=== PATIENT | male | born 1965 | race Caucasian/White ===

== ENCOUNTER → 2018-09-17 | Outpatient (REF) | payer OTHER | LOC: M LAB REF 12:37 | PROVIDERS: ATTEND Physician Assistant | DX: J02.9 Acute pharyngitis, unspecified (principal) ==

== ENCOUNTER → 2018-10-02 | Outpatient (REF) | payer OTHER | LOC: M SFHCPLAZ 18:22 | PROVIDERS: ATTEND Dermatology | DX: L57.0 Actinic keratosis (principal); Z85.820 Personal history of malignant melanoma of skin ==

== ENCOUNTER → 2019-10-05 | Outpatient (REF) | payer OTHER | LOC: M LAB REF 13:44 | PROVIDERS: ATTEND Dermatology | DX: L57.0 Actinic keratosis (principal) ==

== ENCOUNTER → 2021-05-03 | Outpatient (REF) | payer OTHER ==
[2021-05-03 13:44] LABS: APPEARANCE, URINE HAZY (CLEAR); BACTERIA, URINE AUTO NEGATIVE (NEGATIVE); BILIRUBIN, URINE AUTO NEGATIVE (NEGATIVE); BLOOD, URINE BLOOD NEGATIVE (NEGATIVE); COLOR, URINE YELLOW (YELLOW); GLUCOSE, URINE (UA) AUTO 3+ mg/dL (NEGATIVE); KETONE, URINE AUTO NEGATIVE (NEGATIVE); LEUKOCYTE ESTERASE, URINE AUTO NEGATIVE (NEGATIVE); NITRITE, URINE AUTO NEGATIVE (NEGATIVE); PROTEIN, URINE AUTO NEGATIVE (NEGATIVE); RBC, URINE AUTO 0 /HPF (0-3); SPECIFIC GRAVITY URINE AUTO 1.028 (1.002-1.035); SQUAMOUS EPITHELIAL CELL UR AU 0 /HPF (0-6); UROBILINOGEN, URINE AUTO 0.2 mg/dL (0.0-2.0); WBC, URINE AUTO 0 /HPF (0-3)
== END ==
LOC: M SMT 12:46
PROVIDERS: ATTEND Physician Assistant
DX: R35.0 Frequency of micturition (principal)

== ENCOUNTER → 2021-05-18 | Outpatient (CLI) | payer OTHER | LOC: M RAD 08:03 | PROVIDERS: ATTEND Physician Assistant | DX: R35.0 Frequency of micturition (principal) ==

== ENCOUNTER → 2021-10-24 | Outpatient (CLI) | payer OTHER | LOC: M EKG 10:04 | PROVIDERS: ATTEND Anesthesiology | DX: M19.90 Unspecified osteoarthritis, unspecified site (principal) ==

== ENCOUNTER → 2021-10-29 | Outpatient (CLI) | payer OTHER | LOC: M LABSMTC 11:40 | PROVIDERS: ATTEND Anesthesiology | DX: Z01.818 Encounter for other preprocedural examination (principal); Z11.52 Encounter for screening for COVID-19 ==

== ENCOUNTER 2021-11-03 12:47 | Day surgery (SDC) | payer OTHER ==
[~2021-11-03] VITALS: Ht 170.2 cm; Wt 68.0 kg
[~2021-11-03 12:47] MED LIST: ceFAZolin SOD 2 GM in IV 1 EA IV ONE
[2021-11-03] MEDS ORDERED: LIDOCAINE 2% 100MG/5ML SDV (FOR ANES.) As Ordered ONE (13:27)
[2021-11-03] MEDS ORDERED: propofoL 200 MG/20 ML VIAL As Ordered ONE (13:27)
[2021-11-03] MEDS ORDERED: ROCURONIUM BROMIDE 50 MG/5 ML VIAL As Ordered ONE ×2 (13:27→14:59)
[2021-11-03] MEDS ORDERED: dexameTHASONE 4 MG/ML 1ML VIAL (J1100 PER 1MG) As Ordered ONE (13:27)
[2021-11-03] MEDS ORDERED: ONDANSETRON 4MG 2ML VIAL As Ordered ONE (13:27)
[2021-11-03] MEDS ORDERED: LR 1,000 ML IV SCH ×2 (13:30→15:40)
[2021-11-03] MEDS ORDERED: MIDAZOLAM INJ 2MG/2ML VIAL (J2250 PER 1MG) As Ordered ONE (13:31)
[2021-11-03] MEDS ORDERED: fentaNYL 250 MCG/5 ML INJECTION As Ordered ONE (13:31)
[2021-11-03] MEDS ORDERED: HYDROmorphone HCL 2MG/ML 1ML VIAL As Ordered ONE (13:32)
[2021-11-03] MEDS ORDERED: BUPIVACAINE/EPIN 0.25% 30 ML VIAL As Ordered ONE ×2 (14:07→14:40)
[2021-11-03] MEDS ORDERED: ePHEDrine SULFATE 25 MG/5 ML(5MG/ML) SYRINGE As Ordered ONE (14:34)
[2021-11-03] MEDS ORDERED: ONDANSETRON 4MG 2ML VIAL IV PRN (15:40)
[2021-11-03] MEDS ORDERED: HYDROMORPHONE HCL 0.5 MG/ 0.5 ML SYRINGE (J1170 PER 1) IV PRN (15:40)
[2021-11-03] MEDS ORDERED: fentaNYL 100 MCG/2 ML INJECTION IV PRN (15:40)
[2021-11-03] MEDS ORDERED: oxyCODONE 5MG TAB PO PRN (15:40)
[2021-11-03] MEDS ORDERED: traMADol 50 MG TAB PO PRN ×2 (16:00→16:05)
[2021-11-03] MEDS ORDERED: NS 1,000 ML IV SCH (16:00)
[2021-11-03 17:50] VITALS: BP 122/58
== END 2021-11-03 17:56 | disposition home or self-care (01) ==
LOC: M SDC 12:47
PROVIDERS: ATTEND Surgery
DX: K40.90 Unilateral inguinal hernia, without obstruction or gangrene, not specified as recurrent (principal); N40.0 Benign prostatic hyperplasia without lower urinary tract symptoms
CPT/HCPCS: 49650; C1781; J0690; J1100; J1170; J2250; J2405; J3010; S2900

== ENCOUNTER → 2022-12-28 | Outpatient (CLI) | payer BC | LOC: M RAD 13:38 | PROVIDERS: ATTEND Physician Assistant Medical | DX: R10.9 Unspecified abdominal pain (principal) ==

== ENCOUNTER 2023-08-29 08:45 | Day surgery (SDC) | payer BC ==
[~2023-08-29] VITALS: Ht 170.2 cm; Wt 69.5 kg
[2023-08-29] MEDS: NS 1,000 ML IV ONE (09:15)
[2023-08-29] MEDS ORDERED: LIDOCAINE 2% 100MG/5ML SDV (FOR ANES.) As Ordered ONE (10:47)
[2023-08-29] MEDS ORDERED: propofoL 200 MG/20 ML VIAL As Ordered ONE (10:47)
[2023-08-29 11:03] VITALS: TEMP 98.8
[2023-08-29 11:23] VITALS: BP 111/56; O2SAT 99
== END 2023-08-29 11:42 | disposition home or self-care (01) ==
LOC: M OPP 08:45
PROVIDERS: ATTEND Surgery
DX: Z12.11 Encounter for screening for malignant neoplasm of colon (principal)